=== PATIENT | female | born 1980 ===

== ENCOUNTER 2017-08-13 00:54 | Emergency (ER) | payer OTHER ==
[2017-08-13 00:55] VITALS: BMI 30.2
--- NOTE | 2017-08-13 01:01 | ED PDOC ---
Arrival/HPI - General Time Seen by Provider: 08/13/17 01:01 Historian: Patient - History of Present Illness Narrative History of Present Illness (Text): 08/13/17 01:01 36 y/o female, pmh including migraine, nkda, c/o headache and pressure x 1 day with no fall or trauma. Pt. stated that she has frontal headache acutely started last night. Pressure, associated with the runny nose, no night sweat, no rash, no dizziness, no slurred speech, no chest pain or shortness of breath, no palpitation, no night sweat, no dizziness, no other medical or psychological complaints. Past Medical History - Provider Review Nursing Documentation Reviewed: Yes - Infectious Disease Hx of Infectious Diseases: None - Tetanus Immunization Tetanus Immunization: Unknown - Cardiac Hx Hypertension: Yes - Psychiatric Hx Depression: No Hx Emotional Abuse: No Hx Physical Abuse: No Hx Substance Use: No - Surgical History Hx Tubal Ligation: Yes - Suicidal Assessment Feels Threatened In Home Enviroment: No Family/Social History - Physician Review Nursing Documentation Reviewed: Yes Family/Social History: Unknown Family HX Smoking Status: Never Smoked Hx Alcohol Use: No Hx Substance Use: No Hx Substance Use Treatment: No Allergies/Home Meds Allergies/Adverse Reactions: Allergies No Known Allergies Allergy (Verified 08/13/17 01:07) Home Medications: Home Meds Medication Instructions Recorded Confirmed Multivitamin [Daily Vitamin 1 each PO DAILY 08/13/17 08/13/17 Formula] Review of Systems - Review of Systems Constitutional: absent: Fatigue, Fevers Eyes: absent: Vision Changes ENT: Rhinorrhea. absent: Hearing Changes Respiratory: absent: SOB, Cough Cardiovascular: absent: Chest Pain Gastrointestinal: absent: Abdominal Pain, Nausea, Vomiting Skin: absent: Rash, Pruritis Neurological: Headache. absent: Dizziness, Focal Weakness, Gait Changes, Speech Changes Physical Exam Pain Distress: Severe - Systems Exam Head: Present: Atraumatic, Normocephalic, Other (+ttp on the bilateral frontal sinus ). No: Tenderness, Contusion, Swelling, Ecchymosis, Abrasion, Laceration Pupils: Present: PERRL Extroacular Muscles: Present: EOMI Conjunctiva: Present: Normal Ears: Present: NORMAL TM. No: Erythema Mouth: Present: Moist Mucous Membranes Pharnyx: No: ERYTHEMA, EXUDATE, TONSILS ENLARGED, Uvular Deviation, Soft Palate/ Uvular Edema Neck: Present: Normal Range of Motion, Trachea Midline. No: Meningeal Signs, MIDLINE TENDERNESS, Paraspinal Tenderness, Lymphadenopathy Respiratory/Chest: Present: Clear to Auscultation, Good Air Exchange. No: Respiratory Distress, Accessory Muscle Use Cardiovascular: Present: Regular Rate and Rhythm, Normal S1, S2. No: Murmurs Abdomen: Present: Normal Bowel Sounds. No: Tenderness, Distention, Peritoneal Signs Back: Present: Normal Inspection Upper Extremity: Present: Normal Inspection. No: Cyanosis, Edema Lower Extremity: Present: Normal Inspection. No: Edema Neurological: Present: GCS=15, Speech Normal, Motor Func Grossly Intact, Gait Normal, Memory Normal, Other (no focal deficits. ) Skin: Present: Warm, Dry, Normal Color. No: Rashes Psychiatric: Present: Alert, Oriented x 3, Normal Insight, Normal Concentration Medical Decision Making ED Course and Treatment: 08/13/17 01:08 -CT head/orbit -IVF benadryl/reglan, hold toradol until negative CT head 08/13/17 02:28 -Urine hcg negative -CT Head show no acute findings. -CT Orbital/facial: sinus disease -IV toradol/decadron and augmentin ordered -Discharge home with augmentin, claritin d24, motrin, stay hydrated, bed rest, follow up with your own pmd and neurologist/ENT within 2 days, return to the ER for any new or worsening signs or symptoms. - RAD Interpretation Radiology Orders: 08/13/17 01:09 HEAD W/O CONTRAST [CT] Stat ORBITS/ FACIALS W/O CONTRAST [CT] Stat CT Head: FINDINGS: Brain: No intracranial hemorrhage. No mass. No definite edema. Ventricles: No hydrocephalus. Bones/joints: No calvarial fracture. Mastoid air cells: No mastoid effusion. IMPRESSION: 1. No acute intracranial abnormality. 2. See facial CT report for additional details. Thank you for allowing us to participate in the care of your patient. Dictated and Authenticated by: Long Sifuentes MD 08/13/2017 2:20 AM Eastern Time ([place] & [place]) -------- CT Orbits/Facial w/o contrast: FINDINGS: Bones/joints: No acute fracture. Soft tissues: Unremarkable. Orbits: Unremarkable as visualized. Sinuses: Scattered mild mucosal thickening of ethmoid sinuses. Scattered minimal mucosal thickening of remaining sinuses. RIGHT maxillary retention cyst. No air-fluid levels. IMPRESSION: 1. Sinus disease. Thank you for allowing us to participate in the care of your patient. 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 - Medication Orders Current Medication Orders: Discontinued Medications Diphenhydramine HCl (Benadryl) 50 mg IVP STAT STA Stop: 08/13/17 01:11 Last Admin: 08/13/17 01:14 Dose: 50 mg IVP Administration Document 08/13/17 01:14 SC (Rec: 08/13/17 01:14 SC [id number]) Charges for Administration # of IVP Administrations 1 Sodium Chloride (Sodium Chloride 0.9%) 1,000 mls @ 999 mls/hr IV .Q1H1M STA Stop: 08/13/17 02:10 Last Admin: 08/13/17 01:14 Dose: 999 mls/hr eMAR Start Stop Document 08/13/17 01:14 SC (Rec: 08/13/17 01:14 SC [id number]) Intravenous Solution Start Date 08/13/17 Start Time 01:14 End Date 08/13/17 End time 02:15 Total Infusion Time 61 Metoclopramide HCl (Reglan) 10 mg IVP STAT STA Stop: 08/13/17 01:11 Last Admin: 08/13/17 01:21 Dose: 10 mg IVP Administration Document 08/13/17 01:21 SC (Rec: 08/13/17 01:21 SC [id number]) Charges for Administration # of IVP Administrations 1 - 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 Disposition/Present on Arrival - Present on Arrival Any Indicators Present on Arrival: No History of DVT/PE: No History of Uncontrolled Diabetes: No Urinary Catheter: No History of Decub. Ulcer: No History Surgical Site Infection Following: None - Disposition Have Diagnosis and Disposition been Completed?: Yes Diagnosis: Sinusitis, Migraine Disposition: HOME/ ROUTINE Disposition Time: 02:30 Patient Plan: Discharge Condition: IMPROVED Additional Instructions: -Discharge home with augmentin, claritin d24, motrin, stay hydrated, bed rest, follow up with your own pmd and neurologist/ENT within 2 days, return to the ER for any new or worsening signs or symptoms. Prescriptions: Amoxicillin/Clavulanate [Augmentin 875 MG-125 MG] 1 tab PO BID #14 tab Ibuprofen [Motrin Tab] 800 mg PO TID PRN #15 tab PRN Reason: Other Loratadine/Pseudoephedrine [Claritin-D 24 Hour Tablet] 1 each PO DAILY #5 tab.er.24h Referrals: Victoriano Hurley DO [[facility]] - Follow up with primary Sumit Goldsmith MD [Staff Provider] - Follow up with primary Forms: WORK NOTE
[2017-08-13] MEDS ORDERED: Sodium Chloride 0.9% 1,000 ML IV STA (01:10)
[2017-08-13] MEDS ORDERED: DiphenhydrAMINE 50 mg/ml Inj IVP STA (01:10)
--- NOTE | 2017-08-13 02:20 | CT ---
EXAM: CT Head Without Intravenous Contrast CLINICAL HISTORY: 36 years old, female; Pain; Headache; Additional info: Frontal headache TECHNIQUE: Axial computed tomography images of the head/brain without intravenous contrast. All CT scans at this facility use one or more dose reduction techniques, viz.: automated exposure control; ma/kV adjustment per patient size (including targeted exams where dose is matched to indication; i.e. head); or iterative reconstruction technique. COMPARISON: No relevant prior studies available. FINDINGS: Brain: No intracranial hemorrhage. No mass. No definite edema. Ventricles: No hydrocephalus. Bones/joints: No calvarial fracture. Mastoid air cells: No mastoid effusion. IMPRESSION: 1. No acute intracranial abnormality. 2. See facial CT report for additional details.
[2017-08-13] MEDS ORDERED: Amoxicillin-Clav 875-125 mg Tab PO STA (02:26)
--- NOTE | 2017-08-13 02:26 | CT ---
EXAM: CT Maxillofacial Without Intravenous Contrast CLINICAL HISTORY: 36 years old, female; Pain; Headache TECHNIQUE: Axial computed tomography images of the face without intravenous contrast. All CT scans at this facility use one or more dose reduction techniques, viz.: automated exposure control; ma/kV adjustment per patient size (including targeted exams where dose is matched to indication; i.e. head); or iterative reconstruction technique. Coronal and sagittal reformatted images were created and reviewed. COMPARISON: No relevant prior studies available. FINDINGS: Bones/joints: No acute fracture. Soft tissues: Unremarkable. Orbits: Unremarkable as visualized. Sinuses: Scattered mild mucosal thickening of ethmoid sinuses. Scattered minimal mucosal thickening of remaining sinuses. RIGHT maxillary retention cyst. No air-fluid levels. IMPRESSION: 1. Sinus disease.
[2017-08-13 02:38] VITALS: BP 125/76; PULSE 65; RESP 18; TEMP 98.1; O2SAT 96
== END 2017-08-13 02:52 | disposition home or self-care (01) ==
LOC: ED 00:54
DX: J32.9 Chronic sinusitis, unspecified (principal); G43.909 Migraine, unspecified, not intractable, without status migrainosus
CPT/HCPCS: 70450; 70480; 96361; 96374; 96375; 99285; J1100; J1200; J1885; J2765; J7040